=== PATIENT | male | born 1970 | race Caucasian/White ===

== ENCOUNTER 2024-12-18 11:50 | Emergency (ER) | payer BC, OTHER ==
[2024-12-18] MEDS ORDERED: HYDROCODONE/APAP 5/325 MG TAB ONE (12:42)
--- NOTE | 2024-12-18 13:40 | RAD REPORT ---
Exam:Knee Left 3 View HISTORY: Left knee pain FINDINGS: Moderate joint effusion. Mild depression lateral tibial plateau may indicate an acute fracture given the joint effusion. CT co uld be obtained for further evaluation. No dislocation Bony densities with sclerotic borders adjacent to the proximal anterior tibia presumably chronic.
--- NOTE | 2024-12-18 14:24 | ER ---
Nurse's Notes [facility] Name: Alfredo Rizvi Age: 54 yrs Sex: Male : 1970 Arrival Date: 12/18/2024 Time: 11:50 Bed 12 Private MD: Diagnosis: Effusion, left knee;Pain in left knee Presentation: 12/18 12:06 Chief complaint: Patient states: Fell yesterday morning. L knee pain, swelling, hot to ll1 touch today. Coronavirus screen: Client denies travel out of the [place] in the last 14 days. At this time, the client does not indicate any symptoms associated with coronavirus-19. Ebola Screen: Patient denies travel to an Ebola-affected area in the 21 days before illness onset. Initial Sepsis Screen: Does the patient meet any 2 criteria? No. Patient's initial sepsis screen is negative. Does the patient have a suspected source of infection? No. Patient's initial sepsis screen is negative. Risk Assessment: Do you want to hurt yourself or someone else? Patient reports no desire to harm self or others. Onset of symptoms was December 17, 2024. 12:06 Method Of Arrival: Wheelchair ll1 12:06 Acuity: ALEAH 3 ll1 Triage Assessment: 12:06 General: Appears uncomfortable, Behavior is calm, cooperative, appropriate for age. ll1 Pain: Complains of pain in left knee Quality of pain is described as aching. Musculoskeletal: Reports pain in left knee. Injury Description: Bruise. Historical: - Allergies: 12:06 PENICILLINS; ll1 - PMHx: 12:06 Dialysis; Hypertensive disorder; ll1 - Immunization history:: Adult Immunizations up to date. - Infectious Disease History:: Denies. - Social history:: Smoking status: Patient denies any tobacco usage or history of. Screenin:03 [facility] ED Fall Risk Assessment (Adult) History of falling in the last 3 months, ap3 including since admission Yes- single mechanical fall (1 pt) Confusion or Disorientation No (0 pts) Intoxicated or Sedated No (0 pts) Impaired Gait Yes (1 pt) Mobility Assist Device Used No (0 pt) Altered Elimination No (0 pt) Score/Fall Risk Level 0 - 2 = Low Risk Oriented to surroundings, Maintained a safe environment, Educated pt \T\ family on fall prevention, incl call for assistance when getting out of bed, Assessed \T\ reinforced patient's understanding of fall precautions, Hourly rounding (assess needs \T\ fall precautionary measures) done, Used ambulatory aids as needed (educated on \T\ assisted with). Abuse screen: Denies threats or abuse. Nutritional screening: No deficits noted. Tuberculosis screening: No symptoms or risk factors identified. Assessment: 13:02 General: Appears in no apparent distress. Behavior is calm, cooperative, appropriate ap3 for age. Pain: Complains of pain in left knee Pain began 1 day ago. Neuro: Level of Consciousness is awake, alert, obeys commands, Oriented to person, place, time, situation, Appropriate for age. Cardiovascular: Patient's skin is warm and dry. Respiratory: Airway is patent Respiratory effort is even, unlabored, Respiratory pattern is regular, symmetrical. Vital Signs: 12:06 BP 144 / 79; Pulse 99; Resp 17; Temp 98; Pulse Ox 97% ; Weight 108.86 kg; Height 6 ft. ll1 3 in. ; Pain 7/10; 12:06 Body Mass Index 30.00 (108.86 kg, 190.5 cm) ll1 12:06 Pain Scale: Adult ll1 ED Course: 11:53 Patient arrived in ED. rg4 12:00 [facility] dr5 12:00 Khadra Dsouza MD is Attending Physician. dr5 12:08 Triage completed. ll1 12:08 Arm band placed on Patient placed in an exam room, on a stretcher. ll1 12:27 Sally Ivey, RHONDA is Primary Nurse. ap3 13:24 Knee Left 3 View XRAY In Process Unspecified. EDMS 14:24 Helio Roldan MD is Referral Physician. dr5 14:29 No provider procedures requiring assistance completed. Patient did not have IV access ap3 during this emergency room visit. 14:30 Patient has correct armband on for positive identification. Bed in low position. Call ap3 light in reach. Side rails up X2. Provided Education on: crutch walking. Administered Medications: 12:51 Drug: HYDROcodone-acetaminophen PO 5 mg-325 mg 2 tabs PO once Route: PO; ap3 14:08 Follow up: Response: No adverse reaction; Pain is decreased ap3 Medication: 14:31 VIS not applicable for this client. ap3 Outcome: 14:24 Discharge ordered by . yojana 14:30 Discharged to waiting in room for ride ap3 14:30 Condition: good 14:30 Discharge instructions given to patient, Instructed on discharge instructions, follow up and referral plans. medication usage, Demonstrated understanding of instructions, follow-up care, medications, Prescriptions given X 2, 14:31 Patient left the ED. ap3 Signatures: Dispatcher [employer] EDLina Alfonso rg4 Sally Ivey RN RN ap3 Janie Keyes, RN RN ll1 Chet Naik, COMMERCIAL APPRAISER-C COMMERCIAL APPRAISER-Cdr5
--- NOTE | 2024-12-18 14:25 | EDPHYS ---
Physician Documentation [facility] Name: Alfredo Rizvi Age: 54 yrs Sex: Male : 1970 Arrival Date: 12/18/2024 Time: 11:50 Bed 12 Private MD: ED Physician Khadra Dsouza HPI: 12/18 15:56 This 54 yrs old Male presents to ER via Wheelchair with complaints of Fall dr5 Injury, Knee Pain. 15:56 Onset: The symptoms/episode began/occurred acutely. Associated injuries: The patient dr5 sustained left knee. 15:56 Patient is a 54-year-old male with history of dialysis and hypertension coming in with dr5 left knee pain after falling yesterday. Patient reports he is having difficulty ambulating around today and has attempted to go to multiple hospitals but unable to due to not being able to get out of the vehicle.. Historical: - Allergies: 12:06 PENICILLINS; ll1 - PMHx: 12:06 Dialysis; Hypertensive disorder; ll1 - Immunization history:: Adult Immunizations up to date. - Infectious Disease History:: Denies. - Social history:: Smoking status: Patient denies any tobacco usage or history of. ROS: 15:56 Constitutional: as per hpi dr5 Exam: 15:56 Constitutional: This is a well developed, well nourished patient who is awake, alert, dr5 and in no acute distress. Head/Face: Normocephalic, atraumatic. Eyes: Pupils equal round and reactive to light, extra-ocular motions intact. Lids and lashes normal. Conjunctiva and sclera are non-icteric and not injected. Cornea within normal limits. Periorbital areas with no swelling, redness, or edema. Neck: Trachea midline, no thyromegaly or masses palpated, and no cervical lymphadenopathy. Supple, full range of motion without nuchal rigidity, or vertebral point tenderness. No Meningismus. Chest/axilla: Normal chest wall appearance and motion. Nontender with no deformity. No lesions are appreciated. Cardiovascular: Regular rate and rhythm with a normal S1 and S2. Normal PMI, no JVD. No pulse deficits. Respiratory: Lungs have equal breath sounds bilaterally, clear to auscultation. No rales, rhonchi or wheezes noted. No increased work of breathing, no retractions or nasal flaring. Abdomen/GI: Soft, non-tender, non-distended Back: No spinal tenderness. No costovertebral tenderness. Full range of motion. Neuro: Awake and alert, GCS 15, oriented to person, place, time, and situation. Cranial nerves II-XII grossly intact. Motor strength 5/5 in all extremities. Sensory grossly intact. Cerebellar exam normal. Normal gait. 15:56 Musculoskeletal/extremity: Extremities: noted in the left knee: swelling, tenderness, ROM: Patient is able to fully extend leg without difficulty. Unable to flex more than 90 degrees., Circulation is intact in all extremities. Sensation intact. Vital Signs: 12:06 BP 144 / 79; Pulse 99; Resp 17; Temp 98; Pulse Ox 97% ; Weight 108.86 kg; Height 6 ft. ll1 3 in. ; Pain 7/10; 12:06 Body Mass Index 30.00 (108.86 kg, 190.5 cm) ll1 12:06 Pain Scale: Adult ll1 MDM: 12:14 Medical Screening Exam initiated dr5 15:56 Differential diagnosis: abrasion, contusion, fracture, sprain, strain. Data reviewed: dr5 vital signs, nurses notes, radiologic studies, plain films. I considered the following discharge prescriptions or medication management in the emergency department Medications were administered in the Emergency Department. See MAR. Care significantly affected by the following chronic conditions: Hypertension, CKD. Care significantly affected by the following Social Determinants of Health: Poor access to healthcare and/or lack of insurance, Poor access to transportation, Problems related to employment. Counseling: I had a detailed discussion with the patient and/or guardian regarding the historical points, exam findings, and any diagnostic results supporting the discharge/admit diagnosis, the presence of at least one elevated blood pressure reading (>120/80) during this emergency department visit, radiology results, the need for outpatient follow up, for definitive care, a family practitioner, a orthopedic surgeon, to return to the emergency department if symptoms worsen or persist or if there are any questions or concerns that arise at home. ED course: Concerns for possible patellar fracture. Will place patient in knee immobilizer and give crutches and keep him nonweightbearing until evaluated by orthopedics in 1 week. CD and results printed out and given to patient in discharge paperwork. Patient given pain medication and feels better. All questions answered.. 12/18 12:33 Order name: Knee Left 3 View XRAY; Complete Time: 13:48 dr5 12/18 13:52 Order name: Knee Immobilizer; Complete Time: 14:08 dr5 12/18 13:52 Order name: Crutches; Complete Time: 14:08 dr5 Administered Medications: 12:51 Drug: HYDROcodone-acetaminophen PO 5 mg-325 mg 2 tabs PO once Route: PO; ap3 14:08 Follow up: Response: No adverse reaction; Pain is decreased ap3 Disposition Summary: 12/18/24 14:24 Discharge Ordered Notes: Location: Home dr5 Condition: Stable dr5 Diagnosis - Effusion, left knee dr5 - Pain in left knee dr5 Followup: dr5 - With: Emergency Department - When: As needed - Reason: Worsening of condition Followup: dr5 - With: Private Physician - When: 1 - 2 days - Reason: Recheck today's complaints, Continuance of care, Re-evaluation by your physician Followup: dr5 - With: Helio Roldan MD - When: 1 week - Reason: Recheck today's complaints, Continuance of care, Re-evaluation by your physician Discharge Instructions: - Discharge Summary Sheet dr5 - Knee Effusion dr5 - Acute Knee Pain, Adult dr5 - RICE Therapy for Routine Care of Injuries, [id number] dr5 Forms: - Medication Reconciliation Form dr5 - Antibiotic Education dr5 - Prescription Opioid Use dr5 - Patient Portal Instructions dr5 - Leadership Thank You Letter dr5 Prescriptions: - Cephalexin 500 mg Oral capsule - take 1 capsule ORAL route every 12 hours for 7 days; 14 capsule; Refills: 0, dr5 Product Selection Permitted - Tramadol 50 mg Oral Tablet - take 1 tablet ORAL route every 8 hours as needed; 12 tablet; Refills: 0, dr5 Product Selection Permitted Signatures: Dispatcher [employer] Sally Parsons RN RN ap3 Janie Keyes RN RN ll1 Chet Naik, TEOFILO-C [employer]NER-Cdr5 Corrections: (The following items were deleted from the chart) 13:57 13:23 Accucheck ordered. dr5 dr5 13:57 13:23 Cardiac monitoring ordered. dr5 dr5 13:57 13:23 IV Saline Lock - Large Bore ordered. dr5 dr5 13:57 13:23 Labs collected and sent ordered. dr5 dr5 13:57 13:23 Oxygen Per Protocol ordered. dr5 dr5 13:57 13:23 O2 Sat Monitoring ordered. dr5 dr5 13:57 13:23 Vital Signs ordered. dr5 dr5
[2024-12-18 14:47] VITALS: BP 144/79; TEMP 98; O2SAT 97
== END 2024-12-18 14:31 | disposition home or self-care (01) ==
LOC: ER 11:50
DX: M25.462 Effusion, left knee (principal)
CPT/HCPCS: 99283